=== PATIENT | female | born 1960 | race Two or more races ===

== ENCOUNTER 2017-02-20 14:24 | Emergency (ER) | payer BC, OTHER ==
[~2017-02-20] VITALS: Ht 157.5 cm; Wt 63.5 kg
[2017-02-20] MEDS ORDERED: KETOROLAC TROMETH 60MG/2ML VIAL IM ONE (16:00)
[2017-02-20] MEDS ORDERED: ONDANSETRON ODT 4 MG TAB PO ONE (16:00)
[2017-02-20 17:50] VITALS: BP 126/70
[2017-02-20] MEDS ORDERED: MEPERIDINE HCL (50 MG/ML) 1 ML VIAL IM ONE (18:15)
== END 2017-02-20 18:24 | disposition home or self-care (01) ==
LOC: ER 14:24
DX: S16.1XXA Strain of muscle, fascia and tendon at neck level, initial encounter (principal); S39.012A Strain of muscle, fascia and tendon of lower back, initial encounter; G89.29 Other chronic pain; Z88.8 Allergy status to other drugs, medicaments and biological substances; V49.49XA Driver injured in collision with other motor vehicles in traffic accident, initial encounter; Y93.89 Activity, other specified; Y99.8 Other external cause status; Y92.410 Unspecified street and highway as the place of occurrence of the external cause
CPT/HCPCS: 72040; 72100; 72131; 96372; 99284; J1885; Q0162